=== PATIENT | female | born 1945 | race Caucasian/White ===

== ENCOUNTER 2024-10-21 13:02 | Emergency (ER) | payer MEDICARE, SELFPAY ==
[2024-10-21 13:20] VITALS: BP 155/62; PULSE 63; RESP 20; TEMP 36.7; O2SAT 100
--- NOTE | 2024-10-21 13:34 | ED.URI ---
HPI - URI/Sore Throat General Chief Complaint: Upper Respiratory Infection Stated Complaint: covid symptoms Time Seen by Provider: 10/21/24 13:35 Source: patient Mode of arrival: ambulatory Limitations: no limitations History of Present Illness HPI Narrative: 78-year-old female presents with complaint of postnasal drainage, typical to throat that causes a dry cough. Symptoms for 2 days. Started Claritin. Is scheduled for an outpatient bone marrow test. Call the facility to make sure she could still come in with a cough. Was recommended that she have a COVID test done. Patient states she feels fine . All systems reviewed and negative except as noted above. Related Data Home Medications ?Medication ?Instructions ?Recorded ?Confirmed ?Last Taken ?Type Virtus Caps PO .QD 06/19/21 11/04/23 Unknown History ergocalciferol (vitamin D2) 1,250 1,250 mcg PO MONTHLY 06/19/21 11/04/23 Unknown History mcg (50,000 unit) capsule Allergies Allergy/AdvReac Type Severity Reaction Status Date / Time Iodinated Contrast Media AdvReac Severe unkown Verified 10/21/24 13:29 [facility] Past Medical History Medical History Kidney abscess Hypertension Cancer Arthritis Family History Family History Other Thyroid disorder Grandparent Cancer Social History Social History Smoking status: Never smoker Second hand tobacco smoke exposure: No Alcohol intake: never Substance use: never Substance use type: does not use Do You Feel Safe in your Home?: Yes Lack of Transportation: No Lack of Food: Never True Current Housing: I Have Housing Concerned About Future Housing: No Difficulty Paying Gas/Electric Bills: No Difficulty Paying for Meds: No Currently Unemployed: No Education: High School Diploma/GED Difficulty w/ Childcare or Family Care: No Living arrangements: with family Occupation/Education: retired Additional occupation/education comments: commanding officer [employer] Gender identity (if verbalized by the patient): Female Comments At time of signature, agree with nursing past medical, surgical, social and family history. There is no relevant family history pertinent to the presenting complaint. Exam Narrative: GENERAL: This is a well-nourished, well-developed patient, in no apparent distress. HEAD: normocephalic, atraumatic. EYES: PERRL. Sclera clear/white. Vision is grossly intact. EARS: External ears normal, auditory canals clear and without drainage, TMs normal without perforation. Hearing grossly intact. NOSE: External nose normal with no obvious nasal discharge, nares without redness, no rhinorrhea. THROAT: Mucous membranes moist, clear postnasal drainage NECK: Neck supple, non-tender without lymphadenopathy, masses or thyromegaly. CARDIOVASCULAR: Regular rate and rhythm without murmurs, gallops, or rubs. RESPIRATORY: Clear to auscultation. Breath sounds equal bilaterally. No wheezes, rales, or rhonchi. SKIN: warm, Dry, intact with no suspicious lesions or rash, good texture and turgor. NEURO: awake, alert, and oriented to person, place and time. There were no obvious focal neurologic abnormalities. EXTREMITIES: No joint tenderness, effusion, or edema noted Course Course Level of Care: Express Care Visit Vital Signs Vital signs: Vital Signs Temperature 36.7 C 10/21/24 13:20 Pulse Rate 63 10/21/24 13:20 Respiratory Rate 20 10/21/24 13:20 Blood Pressure 155/62 H 10/21/24 13:20 Pulse Oximetry 100 10/21/24 13:20 Oxygen Delivery Room Air 10/21/24 13:20 Temperature 36.7 C 10/21/24 13:20 Pulse Rate 63 10/21/24 13:20 Respiratory Rate 20 10/21/24 13:20 Blood Pressure 155/62 H 10/21/24 13:20 Pulse Oximetry 100 10/21/24 13:20 Oxygen Delivery Room Air 10/21/24 13:20 reviewed MDM - URI/Sore Throat MDM Narrative Medical decision making narrative: Exam findings show no acute concerns or changes; patient is non-toxic appearing and is in no distress. Patient is appropriate for outpatient treatment and follow-up. Differential Diagnosis Differential diagnosis: Likely upper respiratory infection, sinusitis and viral infection Lab Data Labs: Lab Results 10/21/24 Range/Units 13:45 POC SARS CoV-2 Ag Negative (Negative) Discharge Plan Discharge Clinical Impression: Allergic rhinosinusitis Qualifiers: Allergic rhinitis trigger: unspecified Allergic rhinitis seasonality: unspecified Qualified Code(s): J30.9 - Allergic rhinitis, unspecified Patient Disposition: Home Condition: Stable Instructions: Rhinosinusitis (ED) Additional Instructions: Your COVID test was negative today. Continue taking Claritin daily. Follow-up your primary care physician as needed. Patient Language: Greek Prescriptions: No Action ergocalciferol (vitamin D2) 1,250 mcg (50,000 unit) capsule 1,250 mcg PO MONTHLY Virtus Caps PO .QD allopurinol 100 mg tablet 100 mg PO DAILY Qty: 90 3RF lisinopril 40 mg tablet 40 mg PO DAILY Qty: 90 3RF metoprolol succinate 100 mg tablet extended release 24 hr 100 mg PO DAILY Qty: 90 3RF amlodipine 10 mg tablet 10 mg PO DAILY Qty: 90 2RF atorvastatin 10 mg tablet 10 mg PO DAILY Qty: 90 3RF furosemide 40 mg tablet 40 mg PO QAM Qty: 90 2RF cephalexin 250 mg capsule 250 mg PO Q12H Qty: 14 0RF Follow-up/Referrals: Karsten Woodard DO [Primary Care Provider, Internal Medicine] Time of Disposition: 13:52
[2024-10-21 13:47] LABS: EDCOVIDSCREEN Negative (Negative)
== END 2024-10-21 14:06 | disposition home or self-care (01) ==
PROVIDERS: Emergency Provider Nurse Practitioner Family; PCP Internal Medicine
DX: J30.9 Allergic rhinitis, unspecified (principal); Z20.822 Contact with and (suspected) exposure to COVID-19; I10 Essential (primary) hypertension; M19.90 Unspecified osteoarthritis, unspecified site; Z85.9 Personal history of malignant neoplasm, unspecified
CPT/HCPCS: 87426; 99212; G0463